=== PATIENT | male | born 1995 | race Caucasian/White ===

== ENCOUNTER 2023-04-06 13:49 | Observation (INO) | payer MEDICARE, MEDICAID, SELFPAY ==
[2023-04-06 14:26] VITALS: BP 157/119; PULSE 113; RESP 16; TEMP 37; O2SAT 98
[2023-04-06 14:31] VITALS: BMI 38.4
[2023-04-06] MEDS: nicotine 4 mg lozenge MUCOUS MEM ×2 (15:31→17:49)
[2023-04-06] MEDS: mirtazapine 15 mg Tablet PO (20:45)
[2023-04-06] MEDS: ibuprofen 600 mg Tablet PO (20:48)
[2023-04-06 22:00] VITALS: BP 175/99; PULSE 119; RESP 18; TEMP 36.9; O2SAT 97
[2023-04-07 06:00] VITALS: RESP 16
[2023-04-07] MEDS: nicotine 21 mg Patch 1 PATCH TRANSDERMA (08:07)
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
[2023-04-07] MEDS: acetaminophen 325 mg Tablet 650 MG PO (10:29)
[2023-04-07 12:09] VITALS: BP 142/79; PULSE 105; RESP 17; TEMP 37.1; O2SAT 97
--- NOTE | 2023-04-07 13:10 | DCPLANNER ---
IMM completed and copy of rights was given to pt. Pt stated he understood his rights.
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
[2023-04-07 16:13] VITALS: BP 142/79; PULSE 105; RESP 17; TEMP 37.1; O2SAT 97
== END 2023-04-07 16:34 | disposition home or self-care (01) ==
PROVIDERS: Admitting Provider Psychiatry & Neurology Psychiatry; Visit Provider Psychiatry & Neurology Psychiatry
DX: F33.3 Major depressive disorder, recurrent, severe with psychotic symptoms (principal); F41.1 Generalized anxiety disorder; F60.9 Personality disorder, unspecified; Z62.810 Personal history of physical and sexual abuse in childhood
CPT/HCPCS: 97150; 97165; G0378; G0379